=== PATIENT | male | born 1985 | race Caucasian/White ===

== ENCOUNTER 2016-08-12 20:57 | Emergency (ER) | payer OTHER ==
[~2016-08-12] VITALS: Ht 162.6 cm; Wt 79.9 kg
[2016-08-12 21:06] VITALS: Ht 162.6 cm; Wt 79.9 kg
[2016-08-13] MEDS ORDERED: LORAZEPAM 1 MG TAB PO ONE (01:00)
--- NOTE | 2016-08-13 01:25 | ERD ---
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 He states that he got into an argument with his commodities manager 5 hours ago. He states that he has a lot of problems at work and there is no upper management support. He states that his commodities manager was not being helpful and he started yelling at his commodities manager. He states that he developed shortness of breath , sweating, numbness and tingling in his bilateral arms. However he states that right now he does not have the symptoms. He is upset with the situation. Denies chest pain, cough, shortness of breath or difficulty breathing. Denies leg pain or swelling. Denies headache or dizziness or blurry vision. Denies abdominal pain, nausea, vomiting or diarrhea. No other complaints. He said he has never had panic attacks in the past but does have anxiety and high stress environment. He denies suicidal ideations. ROS All systems reviewed and are negative except as per history of present illness. Allergies Allergies: Coded Allergies: No Known Allergy (Unverified , 08/12/16) PMhx/Soc History of Surgery: No Anesthesia Reaction: No Hx Neurological Disorder: No Hx Respiratory Disorders: No Hx Cardiac Disorders: No Hx Psychiatric Problems: No Hx Miscellaneous Medical Probl: No Hx Alcohol Use: No Hx Substance Use: No Hx Tobacco Use: No Smoking Status: Never smoker Physical Exam Vitals Vital Signs Date Time Temp Pulse Resp B/P Pulse Ox O2 Delivery O2 Flow Rate FiO2 08/13/16 02:13 81 16 131/81 99 Room Air 08/12/16 21:06 97.4 101 20 141/80 100 Physical Exam GENERAL: Well-developed, well-nourished male. Appears in no acute distress. ENT: Moist mucous membranes. No uvula deviation. No kissing tonsils. No exudates. NECK: Supple. No lymphadenopathy or thyromegaly. No meningismus. negative kernig. negative brudinski. LUNG: Clear to auscultation bilaterally. No rhonchi, wheezing, rales or coarse breath sounds. HEART: Regular rate and rhythm. No murmurs, rubs or gallops. Extremities: Equal pulses bilaterally. No peripheral clubbing, cyanosis or edema. No unilateral leg swelling. NEUROLOGIC: Alert and oriented. Moving all four extremities. 5/5 strength in all extremities. Normal speech. Steady gait. Cranial nerves II through XII intact. SKIN: Normal color. Warm and dry. No rashes or lesions. Capillary refill < 2 seconds Results 24 hrs Current Medications Medications (Trade) Dose Ordered Sig/Morena Route PRN Reason Start Time Stop Time Status Last Admin Dose Admin Lorazepam (Ativan) 1 mg ONCE ONCE PO 08/13/16 01:00 08/13/16 01:01 DC 08/13/16 01:07 Procedures/MDM ER COURSE: I kept the patient and/or family informed of laboratory and diagnostic imaging results throughout the emergency room course. IMAGING: [place] [id number] Radiology Main Line: [phone] DIAGNOSTIC IMAGING REPORT Patient: IKER ABARCA : 1985 Age: 31 Sex: M MR #: [id number] DOS: 08/13/16 0053 Ordering MD: KOLBY BALL PA-C Location: [facility] Room/Bed: PROCEDURE: XR Chest. CLINICAL INDICATION: Anxiety. TECHNIQUE: Single frontal view of the chest was obtained COMPARISON: None FINDINGS: Cardiomegaly. Changes of centrolobular emphysema. Lungs otherwise clear. There is no pleural effusion or pneumothorax. IMPRESSION: No acute disease. RPTAT: [facility] Physician Arsalan Date Time Electronically viewed and signed by Physician Arsalan on 08/13/2016 01:33 RS/ CC: KOLBY BALL PA-C EKG performed, read by Dr. Monterroso 74bpm, normal sinus rhythm, normal axis, no acute ST segment changes, no T wave inversion MEDICATIONS 1mg ativan. tolerated well with no adverse reaction. stated improvement in symptoms. MEDICAL DECISION MAKING: This is a 31-year-old male who presents with stress. Vital signs were reviewed. Patient is afebrile. Patient is not hypoxic. Patient has a pulse of 101 in the ED likely related to his stress reaction. He denies chest pain and I do not think a further chest workup with laboratory studies is needed at this time. Low suspicion for ACS, PE, AAA, dissection, DVT. Low suspicion for intracranial hemorrhage, meningitis, intracranial mass, concussion, temporal arteritis, stroke, elevated intracranial pressure, seizure. Patient's heart score is 0. I also have low suspicion for PE. After Ativan and examination, patient's pulse decrease and is no longer tachycardic. DISCHARGE: At this time, patient is stable for discharge and outpatient management with no new complaints during the ER course. Patient was sent home with information of general doctors in the area to follow-up with.. Patient will be discharged home with instructions to recheck for new or worsening symptoms such as fever, nausea , weakness, LOC and to follow up with primary care in the next 1-2 days. Patient was advised to return to the ER for any new or worsening symptoms. Plan was discussed and patient and/or family understands and agrees. Home instructions were given. Departure Diagnosis: Primary Impression: Shortness of breath Condition: Stable KOLBY BALL PA-C Aug 13, 2016 01:25
--- NOTE | 2016-08-13 01:33 | RADRPT ---
PROCEDURE: XR Chest. CLINICAL INDICATION: Anxiety. TECHNIQUE: Single frontal view of the chest was obtained COMPARISON: None FINDINGS: Cardiomegaly. Changes of centrolobular emphysema. Lungs otherwise clear. There is no pleural effusion or pneumothorax. IMPRESSION: No acute disease. RPTAT: [facility] Physician Arsalan Date Time Electronically viewed and signed by Simi Owen Physician on 08/13/2016 01:33 RS/
[2016-08-13 02:13] VITALS: BP 131/81; PULSE 81; RESP 16
== END 2016-08-13 02:14 | disposition home or self-care (01) ==
LOC: FTE 20:57
DX: R06.02 Shortness of breath (principal)
CPT/HCPCS: 71010; 93005